=== PATIENT | male | born 1935 | race Caucasian/White ===

== ENCOUNTER 2017-11-20 09:56 | Outpatient (CLI) | payer MEDICARE, OTHER ==
[2017-11-20 10:58] LABS: ALT (SGPT) 17 U/L (8-55); AST (SGOT) 15 U/L (5-34); Albumin 3.8 g/dL (3.4-4.8); Alkaline Phosphatase 81 U/L (40-150); Bilirubin, Direct 0.2 mg/dL (0.1-0.3); Bilirubin, Total 0.5 mg/dL (0.2-1.2); Cardiac Risk 4.6 (Less than 4.5); Cholesterol 156 mg/dl (< 200 Desired); HDL Cholesterol 34 mg/dL (>60 Neg Risk); LDL Cholesterol, Calculated 104 mg/dL; Triglycerides 89 mg/dL (Less than 150)
--- NOTE | 2017-11-20 11:46 | RAD ---
PA AND LATERAL VIEWS CHEST: HISTORY: Patient receiving Remicade treatments. Psoriatic arthropathy. FINDINGS: Comparison is made to the exam of 11/07/16. The heart size is normal. The aorta is tortuous. The lungs are expanded without focal areas of cons olidation, pneumothorax, or pleural effusions. There are postoperative changes in the lower cervical spine. IMPRESSION: No radiographic evidence of acute cardiopulmonary process. POS: H
== END 2017-11-20 09:57 | disposition home or self-care (01) ==
LOC: SCSRAD 09:56
PROVIDERS: ATTEND Internal Medicine Infectious Disease
DX: L40.50 Arthropathic psoriasis, unspecified (principal); I25.10 Atherosclerotic heart disease of native coronary artery without angina pectoris; E78.4 Other hyperlipidemia
CPT/HCPCS: 36415; 71046; 80061; 80076

== ENCOUNTER 2018-05-25 10:16 | Outpatient (CLI) | payer MEDICARE, OTHER ==
--- NOTE | 2018-05-25 13:21 | RAD ---
FOUR VIEWS OF THE LUMBAR SPINE: DATE: 05/25/2018. COMPARISON: None. HISTORY: Back pain, fall 3 weeks ago. FINDINGS: There is an incompletely imaged hip arthroplasty on the right. There is moderate degenerative change involving the left hip. There is multifocal lateral osteophyte formation at multiple levels within the lumbar spine, most pro minent on the right at L2-3 and L3-4. There is bulky anterior osteophyte formation at L1-2. There is prominent lower lumbar spine facet hy pertrophy including L4-5 and L5-S1 bilaterally. There is anterolisthesis of L4 on L5 measuring appro ximately 4 mm on the neutral imaging. On extension imaging, the anterolisthesis of L4 on L5 is uncha nged. On the flexion imaging, the anterolisthesis of L4 on L5 slightly increases to 5-6 mm. At L2-3, there is significant posterior osteophyte. IMPRESSION: Multilevel degenerative change noted within the lumbar spine as detailed above. No acute fracture is evident. If there are radicular symptoms, MRI is recommended. POS: MICHELLE
== END 2018-05-25 10:17 | disposition home or self-care (01) ==
LOC: SCSRAD 10:16
PROVIDERS: ATTEND Family Medicine
DX: Z23 Encounter for immunization (principal); M47.896 Other spondylosis, lumbar region
CPT/HCPCS: 72120

== ENCOUNTER 2018-06-08 09:09 | Outpatient (CLI) | payer MEDICARE, OTHER ==
--- NOTE | 2018-06-08 11:39 | MRI ---
MRI LUMBAR SPINE NONCONTRAST: HISTORY: Low back pain with right leg radiculopathy. Recent fall with injury. FINDINGS: The conus medullaris has a normal appearance. There is desiccation of the lowest four intervertebral disks. Vertebral body height is maintained. Bone marrow signal shows scattered discogenic endplate changes without evidence of compression injury. T12-L1/L1-L2: Mild osteophytosis of the facets. Bulky anterior vertebral body osteophytosis. The c entral canal and neural foramina are patent. L2-L3: Disk space narrowing with minimal degenerative retrolisthesis. Large posterior central disk herniation with inferior extension. There is severe compression of the thecal sac anteriorly and eff acement of the origins of each L3 nerve root. Disk bulge and osteophytosis result in moderate stenos is of each neural foramen at this level. L3-L4: Disk space narrowing. Posterior disk bulge and circumferential degenerative changes with mod erate stenosis of the central canal and each neural foramen. L4-L5: Minimal degenerative spondylolisthesis. Posterior disk bulge and circumferential degenerativ e changes with very severe stenosis of the central canal, and moderate to severe stenosis of each huber ral foramen. L5-S1: Posterior annular fissure within the disk. Mild disk bulge. Thecal sac is patent. Degenera tive changes with severe right and moderate left foraminal stenosis. IMPRESSION: 1. Large posterior disk herniation at the L2-L3 level with severe compression of the thecal sac. 2. Prominent multilevel degenerative changes with central canal and foraminal stenosis, as detailed above, including very severe stenosis of the thecal sac, at the L4-L5 level. POS: MICHELLE
== END 2018-06-08 09:10 | disposition home or self-care (01) ==
LOC: SCSMRI 09:09
PROVIDERS: ATTEND Family Medicine
DX: M48.061 Spinal stenosis, lumbar region without neurogenic claudication (principal); M51.16 Intervertebral disc disorders with radiculopathy, lumbar region; M47.26 Other spondylosis with radiculopathy, lumbar region
CPT/HCPCS: 72148

== ENCOUNTER 2018-09-10 10:13 | Outpatient (CLI) | payer MEDICARE, OTHER ==
--- NOTE | 2018-09-10 14:17 | MRI ---
MRI LUMBAR SPINE WITHOUT CONTRAST: 09/10/18 HISTORY: M51.26 - lumbar disc degeneration. COMPARISON: MRI 06/08/18. FINDINGS: The aortic contour is nonaneurysmal. No hydronephrosis. There is abnormal edema within the anterior L 1 vertebral body extending from the anterior cortex of the right side mid vertebral body cortex. Th is is a well defined areas of abnormal hyperintensity on T2 and hypointensity on T1. There is abnorma l fluid deep to the large bridging anterior osteophyte at L1-2. The levels are as follows: L1-2: Mild increased disc signal. No neural foraminal or spinal canal narrowing. L2-3: Large posterior disc osteophyte complex largest at the central zone although does extend to the bilateral subforaminal zones. There is severe spinal canal narrowing to approximately 3 to 4 mm. Mod erate bilateral neural foraminal narrowing. L3-4: Mild circumferential disc bulge. Moderate facet arthrosis. Moderate bilateral neural foraminal narrowing. L4-5: There is a 2 mm anterolisthesis. Severe facet arthropathy. There is moderate to severe bilatera l neural foraminal narrowing. Severe spinal canal narrowing to 2-3 mm. L5-S1: There is mild posterior degenerative disc space height loss. Low grade posterior disc osteophy te complex. Moderate facet arthropathy. There is moderate to severe right and moderate left sided huber ral foraminal narrowing. There is a central annular fissure. IMPRESSION: 1. Severe spondylosis as described. Multilevel neural foraminal and spinal canal narrowing. Neur osurgical consultation is recommended. 2. Progressive edema within the anterior L1 vertebral body with increased fluid signal deep to t he larger bridging anterior osteophyte. This could be due to abnormal stress and micromotion at this level with fracture of the osteophyte. The increased fluid signal at the L1-L2 disc also suggests chr onic increased micromotion at this level. Follow up study with intravenous contrast may be beneficial in three months if clinically warranted and if there is concern for discitis/osteomyelitis. POS: TPC
== END 2018-09-10 10:14 | disposition home or self-care (01) ==
LOC: TBSIIMAG 10:13
PROVIDERS: ATTEND Anesthesiology Pain Medicine
DX: M51.26 Other intervertebral disc displacement, lumbar region (principal); M47.816 Spondylosis without myelopathy or radiculopathy, lumbar region; M48.061 Spinal stenosis, lumbar region without neurogenic claudication; R93.7 Abnormal findings on diagnostic imaging of other parts of musculoskeletal system; M25.78 Osteophyte, vertebrae
CPT/HCPCS: 72148

== ENCOUNTER 2018-09-19 06:34 | Day surgery (SDC) | payer MEDICARE, OTHER ==
--- NOTE | 2018-09-18 12:15 | HP ---
HISTORY OF PRESENT ILLNESS: Mr. Khanna is someone known to us for distant evaluation of neck popping and back pain, who returns now for rapidly progressive lower back pain and neurogenic claudication symptoms. He was referred by Dr. Dixon who has been doing lumbar epidural steroid injections with limited result, but ordered a new MRI from earlier this week that reveals two areas of profound central canal stenosis, both one at L2-L3 and one much more severe at L4-L5. There is associated grade 1 slip at L4-L5. His symptoms have been progressive since April of 2018, but really over the last 2 to 3 weeks where they progressed to a point where he is nearly immobile secondary to pain. PAST MEDICAL HISTORY: Significant for kidney and bladder problems, hypothyroidism, and gastroesophageal reflux disease. CURRENT MEDICATIONS: 1. Tylenol with Codeine. 2. Levothyroxine. 3. Prilosec. 4. Myrbetriq. ALLERGIES: NO KNOWN DRUG ALLERGIES. PHYSICAL EXAMINATION: NEUROLOGIC: The patient is alert and oriented x3. He is in a wheelchair at present. His gait is extraordinarily slowed with stooped posture. He does not have quite as shuffling gait, but close. He seems to favor his right lower extremity in terms of weakness. He is able to extend at the knees and at the hips, but only with 4/5 strength bilaterally. He can dorsiflex, plantar flex with 4/5 strength bilaterally in both legs. There is no sensory disturbance that I can discern. Reflexes are equally present bilaterally in the patella. ASSESSMENT: Severe lumbar spinal stenosis. PLAN: Dr. Lin met with the patient, reviewed imaging, advocated for L2-L3 and L4-L5 decompression. He explained to the patient the risks, benefits, and alternatives to the procedure. The patient expressed understanding and elected to move forward with surgery as discussed. I do believe the patient is mentally competent and capable of making medical decisions for himself. We will move forward with surgery as planned. Job ID: [id number]
[2018-09-19 07:22] LABS: Mean Corpuscular HGB CONC 31.7 g/dL (32.0-36.0); Mean Corpuscular Hemoglobin 30.9 pg (27.0-31.0); Mean Corpuscular Volume 97.4 fL (78.0-98.0); Mean Platelet Volume 7.5 fL (7.4-10.4); Platelet Count 282 thou/uL (130-400); RBC Distribution Width 12.5 % (11.5-14.5); Red Blood Cell (RBC) Count 4.52 mill/uL (4.70-6.10); White Blood Cell (WBC) Count 8.1 thou/uL (4.8-10.8)
[2018-09-19] MEDS ORDERED: Fentanyl 100 MCG/2 ML VIAL ONE (07:35)
[2018-09-19] MEDS ORDERED: Bupivacaine HCl 0.5%/Epinephrine 1:200,000/PF 30 ml Vial ONE (07:38)
[2018-09-19] MEDS ORDERED: Thrombin 5000 UNITS/5 ML VIAL ONE (07:38)
[2018-09-19 07:54] LABS: Anion Gap 8 mmol/L (10-20); BUN (Urea Nitrogen) 23 mg/dL (8.4-25.7); Calc. Creatinine Clearance 61 mL/min (70-130); Calcium 8.5 mg/dL (7.8-10.44); Carbon Dioxide 30 mmol/L (23-31); Chloride 106 mmol/L (98-107); Estimated GFR-MDRD 72; Glucose 91 mg/dL (83-110); Potassium 3.8 mmol/L (3.5-5.1); Sodium 140 mmol/L (136-145)
[2018-09-19] MEDS ORDERED: Tamsulosin HCl 0.4 MG CAP ONE (10:52)
[2018-09-19] MEDS ORDERED: Rocuronium Bromide 10 MG/ML (10ML VIAL) ONE (13:37)
[2018-09-19] MEDS ORDERED: Dexamethasone 20 MG/5 ML VIAL ONE (13:37)
[2018-09-19] MEDS ORDERED: PROPOFOL 200 MG/20 ML VIAL ONE (13:37)
[2018-09-19] MEDS ORDERED: Ondansetron PF 4 MG/2 ML Vial ONE (13:37)
[2018-09-19] MEDS ORDERED: ePHEDrine 50 MG/ML VIAL ONE (13:37)
[2018-09-19] MEDS ORDERED: Lidocaine 1% PF 5 ML VIAL ONE (13:37)
[2018-09-19] MEDS ORDERED: Glycopyrrolate 0.2 MG/ML 5 ML SYRINGE ONE (13:37)
[2018-09-19] MEDS ORDERED: Acetaminophen/Codeine 30-300mg Tablet ONE (15:04)
--- NOTE | 2018-09-19 17:52 | OP ---
DATE OF PROCEDURE: 09/19/2018 FIST ASSIST: Nikolai Jin PA-C INDICATIONS: Pain and prevent neurologic decline. DIAGNOSES: Weakness, neurogenic claudication, and lumbar stenosis. PROCEDURES PERFORMED: Two separate not adjacent level decompressions L2-L3 and L4-L5 ANESTHESIA: General. DESCRIPTION OF PROCEDURE: The patient was brought into the operating room and placed under general anesthesia. He was flipped from the supine to prone position on the operating room table. A linear incision was planned over L4-L5 and L2-L3. After prepping these areas, the incisions were created. The underlying muscles were swept away from midline. A self-retaining retractor was placed in the wound for optimal exposure. After confirming the appropriate levels with C-arm fluoroscopy, high-speed cutting drill bit as well as 2, 3, and 4 mm Kerrisons were used to perform a decompression at L2-L3 and separately at L4-L5. After decompressing the segment, the wounds were irrigated. Hemostasis was maintained throughout. The wound was then closed in anatomic layers and a pressure dressing was applied. There were no known procedural complications. Job ID: [id number]
== END 2018-09-19 18:58 | disposition home or self-care (01) ==
LOC: SDC 06:34
PROVIDERS: ATTEND Neurological Surgery
PROC: 01NB0ZZ Release Lumbar Nerve, Open Approach (ICD-10-PCS; principal; 2018-09-19)
DX: M48.062 Spinal stenosis, lumbar region with neurogenic claudication (principal); E03.9 Hypothyroidism, unspecified; K21.9 Gastro-esophageal reflux disease without esophagitis; L40.9 Psoriasis, unspecified; K58.9 Irritable bowel syndrome, unspecified; Z79.899 Other long term (current) drug therapy; Z96.653 Presence of artificial knee joint, bilateral; Z98.1 Arthrodesis status; Z96.649 Presence of unspecified artificial hip joint
CPT/HCPCS: 36415; 76000; 80048; 85027; 93005; 93010; J0670; J1100; J2001; J2405; J2704; J3010; J3490

== ENCOUNTER 2019-02-25 21:59 | Emergency (ER) | payer MEDICARE, OTHER ==
[2019-02-25] MEDS ORDERED: Bacitracin 1 PK ONE (22:25)
== END 2019-02-25 22:42 | disposition home or self-care (01) ==
LOC: SCSER 21:59
DX: S01.80XA Unspecified open wound of other part of head, initial encounter (principal); E03.9 Hypothyroidism, unspecified; K21.9 Gastro-esophageal reflux disease without esophagitis; I10 Essential (primary) hypertension; Z79.899 Other long term (current) drug therapy; Z79.82 Long term (current) use of aspirin; W01.0XXA Fall on same level from slipping, tripping and stumbling without subsequent striking against object, initial encounter
CPT/HCPCS: 99282

== ENCOUNTER 2023-01-31 12:46 | Emergency (ER) | payer MEDICARE, OTHER ==
[2023-01-31 14:14] LABS: #Basophils 0.1 thou/uL (0.0-0.2); #Eosinphils 0.1 thou/uL (0.0-0.7); #Monocytes 1.2 thou/uL (0.11-0.59); #Neutrophils 9.9 thou/uL (1.40-6.50); %Basophils 0.3 % (0.0-1.0); %Eosinophils 0.6 % (0.0-10.0); %Lymphocytes 21.3 % (21.0-51.0); %Neutrophils 69.4 % (42.0-75.0); Hemoglobin 12.3 g/dL (14.0-18.0); Mean Corpuscular HGB CONC 32.4 g/dL (32.0-36.0); Mean Corpuscular Hemoglobin 31.9 pg (27.0-31.0); Mean Corpuscular Volume 98.7 fl (78.0-98.0); Mean Platelet Volume 9.9 fL (7.4-10.4); Platelet Count 457 10x3/uL (130-400); RBC Distribution Width 14.4 % (11.5-14.5); Red Blood Cell (RBC) Count 3.85 mill/uL (4.70-6.10); White Blood Cell (WBC) Count 14.3 10x3/uL (4.8-10.8)
[2023-01-31 14:44] LABS: ALT (SGPT) Less than 7 U/L (8-55); AST (SGOT) 19 U/L (5-34); Albumin 3.8 g/dL (3.4-4.8); Alkaline Phosphatase 141 U/L (40-110); Anion Gap 14 mmol/L (10-20); BUN (Urea Nitrogen) 29 mg/dL (8.4-25.7); Bilirubin, Total 0.6 mg/dL (0.2-1.2); Calc. Creatinine Clearance 0 mL/min (70-130); Calcium 8.8 mg/dL (7.8-10.44); Carbon Dioxide 28 mmol/L (23-31); Chloride 105 mmol/L (98-107); Estimated GFR 67; Globulin 3.8 g/dL (2.4-3.5); Glucose 103 mg/dL (83-110); Magnesium 2.3 mg/dL (1.6-2.6); Potassium 3.4 mmol/L (3.5-5.1); Protein, Total 7.6 g/dL (5.8-8.1); Sodium 144 mmol/L (136-145)
[2023-01-31 15:00] LABS: Bacteria/HPF 2+ HPF (None Seen); Bilirubin Negative (Negative); Blood, Urine 2+ (Negative); CAUTI Indications for Culture Alt mental st,lethar; Clarity Extra Turbid (Clear); Glucose, Urine (Dipstick) Normal (Negative); Ketone, Urine Negative (Negative); Leukocyte 500 Leu/uL (Negative); Nitrite Negative (Negative); Protein, Urine (Dipstick) 70 mg/dL (Neg-Trace); Renal Epithelial 0-3 HPF (None Seen); Specific Gravity, Urine 1.014 (1.002-1.036); Squamous Epithelial 0-3 HPF (0-3); WBC/HPF Greater than 50 HPF (0-3); pH, Urine 5.5 (5.0-9.0)
[2023-01-31 15:07] LABS: Urine Culture Reflex Yes Yes
[2023-01-31] MEDS ORDERED: cefTRIAXone (ROCEPHIN) 2 GM VIAL ONE (15:13)
== END 2023-01-31 17:00 | disposition home or self-care (01) ==
LOC: ERS 12:46
DX: N39.0 Urinary tract infection, site not specified (principal); E87.6 Hypokalemia; M25.551 Pain in right hip; D72.829 Elevated white blood cell count, unspecified; E03.9 Hypothyroidism, unspecified; K21.9 Gastro-esophageal reflux disease without esophagitis; I10 Essential (primary) hypertension; Z79.82 Long term (current) use of aspirin
CPT/HCPCS: 36415; 51701; 70450; 80053; 81001; 83605; 83735; 84443; 84484; 85025; 87077; 87086; 87186; 93005; 96361; 96365; J0696